=== PATIENT | male | born 1935 | race Caucasian/White ===

== ENCOUNTER 2016-12-01 10:00 | Day surgery (SDC) | payer OTHER ==
[2016-12-01] VITALS (7 sets, daily range): BP systolic 158–163; BP diastolic 74–99; PULSE 80–101; RESP 16–18; TEMP 97.4–98.1; O2SAT 94–96
[~2016-12-01] VITALS: Ht 170.2 cm; Wt 87.8 kg
[~2016-12-01 10:00] MED LIST: ACET325 PO; CLOP75 PO; CORE6.25 PO; ECOT81TA2; LIVA2TAB PO; NITR0.4S SL; PRIL20CA PO
[2016-12-01] MEDS ORDERED: TIMO0.5S30 EACH EYE (10:48)
[2016-12-01] MEDS ORDERED: CETI10 PO (10:49)
[2016-12-01] MEDS ORDERED: PREV15CA PO (10:49)
[2016-12-01] MEDS ORDERED: CARV6.25 PO (10:49)
[2016-12-01] MEDS ORDERED: ASPI1TAB69 PO (10:49)
[2016-12-01 11:00] LABS: AUTOMATED NEUTROPHIL # 3.9 TH/MM3 (1.8-7.7); BASOPHIL # 0.1 TH/MM3 (0-0.2); BASOPHIL % 0.9 % (0.0-2.0); EOSINOPHIL # 0.2 TH/MM3 (0-0.4); EOSINOPHIL % 2.8 % (0.0-4.0); HEMATOCRIT 48.4 % (39.0-51.0); HEMO FLAGS DIFF FINAL; LYMPH % 38.2 % (9.0-44.0); LYMPHOCYTE # 2.9 TH/MM3 (1.0-4.8); MEAN CELL VOLUME 93.2 FL (80.0-100.0); MEAN CORPUSCULAR HEMOGLOBIN 31.5 PG (27.0-34.0); MEAN CORPUSCULAR HGB CONC 33.9 % (32.0-36.0); MONO % 6.4 % (0.0-8.0); NEUT % 51.7 % (16.0-70.0); PLATELET COUNT 260 TH/MM3 (150-450); RED BLOOD COUNT 5.19 MIL/MM3 (4.50-5.90); RED CELL DISTRIBUTION WIDTH 13.3 % (11.6-17.2); WHITE BLOOD COUNT 7.6 TH/MM3 (4.0-11.0)
[2016-12-01] MEDS ORDERED: NS 1000P @30 MLS/HR (KVO) IV SCH (11:00)
[2016-12-01 11:05] LABS: APTT (PATIENT) 29.8 SEC (24.3-30.1); PROTHROMBIN TIME - PATIENT 11.4 SEC (9.8-11.6)
[2016-12-01 11:11] LABS: POTASSIUM 3.8 MEQ/L (3.5-5.1)
[2016-12-01] MEDS ORDERED: methylPREDNISolone SOD SUCC 125 MG/2 ML VIAL ONE (12:01)
[2016-12-01] MEDS ORDERED: methylPREDNISolone SOD SUCC 125 MG/2 ML VIAL IV ONE (12:30)
[2016-12-01] MEDS ORDERED: FAMOTIDINE 20 MG/2 ML VIAL IV ONE (12:30)
[2016-12-01] MEDS ORDERED: diphenhydrAMINE HCL 50 MG/ML VIAL IV SCH (12:30)
[2016-12-01] MEDS ORDERED: IOHEXOL 350 MG/ML 100 ML BTL (for Cath Lab) OTHER ONE (15:41)
[2016-12-01] MEDS ORDERED: HEPARIN-NS/PF INJ 500 ML ONE (15:57)
[2016-12-01] MEDS ORDERED: diphenhydrAMINE HCL 50 MG/ML VIAL ONE (15:57)
[2016-12-01] MEDS ORDERED: MIDAZOLAM HCL 2 MG/2 ML VIAL ONE ×2 (15:58→16:25)
[2016-12-01] MEDS ORDERED: HEPARIN SODIUM - IV 10,000 UNITS/10 ML VIAL ONE (16:52)
[2016-12-01] MEDS ORDERED: NITROGLYCERIN INJ 5 ML ONE (16:52)
--- NOTE | 2016-12-01 17:08 | EKG ---
Date Performed: 12/01/2016 Time Performed: 11:20:16 PTAGE: 81 years EKG: Sinus rhythm Left axis deviation Compared to prior tracing no significant change Borderline ECG PREVIOUS TRACING : 09/02/2013 04.03 DOCTOR: Edwar Carter Interpretating Date/Time 12/01/2016 16:59:34
[2016-12-01] MEDS ORDERED: TICAGRELOR 90 MG TAB PO ONE (17:17)
[2016-12-01] MEDS ORDERED: BACITRACIN OINT 0.9 GM PKT TOP ONE (17:30)
[2016-12-01] MEDS ORDERED: SODIUM CHLOR 0.9% 250 ML INJ 250 ML IV PRN (18:00)
[2016-12-01] MEDS ORDERED: TEMAZEPAM 15 MG CAP PO PRN (18:00)
[2016-12-01] MEDS ORDERED: MISC INFORMATION XX ONE (18:00)
[2016-12-01] MEDS ORDERED: LIDOCAINE HCL 1% 50 ML VIAL INFIL PRN (18:00)
[2016-12-01] MEDS ORDERED: ATROPINE SULFATE 1 MG/ML VIAL IV PRN (18:00)
[2016-12-01] MEDS ORDERED: SODIUM CHLOR 0.9% 1000 ML INJ 1,000 ML IV SCH (18:00)
[2016-12-01] MEDS ORDERED: LORazepam 2 MG/ML VIAL IV PRN (18:00)
[2016-12-01] MEDS ORDERED: ACETAMINOPHEN 325 MG TAB PO PRN (18:00)
--- NOTE | 2016-12-01 18:00 | HHI.PR ---
Immediate Post Op Note Procedure Date: Dec 01, 2016 Pre Op Diagnosis: cad Post Op Diagnosis: cad Surgeon: Jaron Méndez MD, [facility] Risk Assessment Consultant(s): none Procedure: Cath, PCI LAD Findings: severe LAD stenosis Complications: none Specimen(s) removed: none Estimated blood loss: below 10 cc Patient to: Other Patient Condition: Good Jaron Méndez MD Dec 01, 2016 18:00
[2016-12-01] MEDS ORDERED: EZETIMIBE 10 MG TAB PO SCH (18:15)
[2016-12-01] MEDS: ASPIRIN EC 81 MG TABEC PO SCH (18:45)
[2016-12-01] MEDS: TIMOLOL MALEATE 0.5% OPHT SOLN 5 ML BTL EACH EYE SCH (21:00)
[2016-12-01] MEDS: CARVEDILOL 6.25 MG TAB PO SCH (21:48)
[2016-12-02] VITALS (8 sets, daily range): BP systolic 127–136; BP diastolic 70–95; PULSE 78–104; RESP 18–20; TEMP 97.1–98.5; O2SAT 94–95
[2016-12-02 05:31] LABS: AUTOMATED NEUTROPHIL # 13.7 TH/MM3 (1.8-7.7); BASOPHIL % 0.3 % (0.0-2.0); HEMATOCRIT 45.4 % (39.0-51.0); HEMO FLAGS DIFF FINAL; LYMPH % 13.2 % (9.0-44.0); LYMPHOCYTE # 2.1 TH/MM3 (1.0-4.8); MEAN CELL VOLUME 92.3 FL (80.0-100.0); MEAN CORPUSCULAR HEMOGLOBIN 31.4 PG (27.0-34.0); MONO % 1.3 % (0.0-8.0); NEUT % 85.2 % (16.0-70.0); PLATELET COUNT 226 TH/MM3 (150-450); RED BLOOD COUNT 4.92 MIL/MM3 (4.50-5.90); WHITE BLOOD COUNT 16.1 TH/MM3 (4.0-11.0)
[2016-12-02 05:50] LABS: BICARBONATE 25.3 MEQ/L (21.0-32.0); POTASSIUM 4.2 MEQ/L (3.5-5.1)
[2016-12-02 05:54] LABS: HDL CHOLESTEROL 39.9 MG/DL (40.0-60.0)
[2016-12-02] MEDS ORDERED: TICAGRELOR 90 MG TAB PO SCH (09:00)
[2016-12-02] MEDS ORDERED: PANTOPRAZOLE SOD 40 MG DELAYED RELEASE TAB PO SCH (09:00)
[2016-12-02] MEDS ORDERED: CETIRIZINE HCL 10 MG TAB PO SCH (09:00)
[2016-12-02] MEDS ORDERED: ASPIRIN 81 MG CHEW TAB PO SCH (09:00)
[2016-12-02] MEDS: TIMOLOL MALEATE 0.5% OPHT SOLN 5 ML BTL EACH EYE SCH (09:00)
[2016-12-02] MEDS: ASPIRIN EC 81 MG TABEC PO SCH (09:35)
[2016-12-02] MEDS: CARVEDILOL 6.25 MG TAB PO SCH (09:36)
--- NOTE | 2016-12-02 09:51 | PD.CARD.PN ---
Subjective Subjective Remarks Doing well. Denies CP or SOB. Objective Medications Current Medications Medications (Trade) Dose Ordered Sig/Nik Route PRN Reason Start Time Stop Time Status Last Admin Dose Admin Sodium Chloride (NS 1000 ml Inj) 1,000 ml @ 30 mls/hr Q24H IV 12/01/16 11:00 Acetaminophen (Tylenol) 325 mg Q4H PRN PO PAIN SCALE 1 TO 5 12/01/16 18:00 Temazepam (Restoril) 15 mg HS PRN PO SLEEP 12/01/16 18:00 12/01/16 22:35 Ticagrelor (Brilinta) 90 mg BID PO 12/02/16 09:00 12/02/16 09:35 Lorazepam (Ativan Inj) 0.5 mg UNSCH PRN IV ANXIETY 12/01/16 18:00 12/02/16 17:59 Atropine Sulfate (Atropine Inj) 0.5 mg UNSCH PRN IV VAGAL REPONSE 12/01/16 18:00 Lidocaine HCl (Xylocaine 1% Inj (50 ml)) 10 ml UNSCH PRN INFIL SHEATH REMOVAL 12/01/16 18:00 12/02/16 17:59 Aspirin (Ecotrin Ec) 81 mg DAILY PO 12/01/16 18:00 12/02/16 09:35 Carvedilol (Coreg) 6.25 mg BID PO 12/01/16 21:00 12/02/16 09:36 Cetirizine HCl (ZyrTEC) 10 mg DAILY PO 12/02/16 09:00 12/02/16 09:35 Timolol Maleate (Timoptic 0.5% Opt Soln) 1 drop BID EACH EYE 12/01/16 21:00 12/01/16 21:00 Pantoprazole Sodium (Protonix) 40 mg DAILY PO 12/02/16 09:00 12/02/16 09:35 EZETIMIBE (Zetia) 10 mg DAILY PO 12/01/16 18:15 Vital Signs / I&O Vital Signs Date Time Temp Pulse Resp B/P Pulse Ox O2 Delivery O2 Flow Rate FiO2 12/02/16 06:00 78 12/02/16 05:00 88 12/02/16 04:00 97.1 83 18 130/70 95 12/02/16 04:00 92 12/02/16 03:00 97 12/02/16 02:00 89 2/18/17 01:00 92 12/02/16 00:00 96 12/02/16 00:00 97.6 94 18 127/74 95 12/01/16 23:00 97 12/01/16 22:00 101 12/01/16 21:00 95 12/01/16 20:00 97.5 86 18 160/74 94 12/01/16 20:00 101 12/01/16 19:00 85 12/01/16 18:00 97.4 89 18 158/77 95 12/01/16 10:45 98.1 80 16 163/99 96 I/O 12/01/16 12/01/16 12/01/16 12/02/16 12/02/16 12/02/16 07:00 15:00 23:00 07:00 15:00 23:00 Intake Total 820 ml Output Total 850 ml Balance -30 ml Intake Oral 420 ml IV Total 400 ml Output Urine Total 850 ml # Bowel Movements 0 Physical Exam VSS, afeb Lungs: CTA Heart: RRR Ext: Right groin site stable. No C/C/E Neuro: intact Laboratory Laboratory Tests Test 12/01/16 12/02/16 10:35 05:07 White Blood Count 7.6 TH/MM3 16.1 TH/MM3 Red Blood Count 5.19 MIL/MM3 4.92 MIL/MM3 Hemoglobin 16.4 GM/DL 15.4 GM/DL Hematocrit 48.4 % 45.4 % Mean Corpuscular Volume 93.2 FL 92.3 FL Mean Corpuscular Hemoglobin 31.5 PG 31.4 PG Mean Corpuscular Hemoglobin 33.9 % 34.0 % Concent Red Cell Distribution Width 13.3 % 13.0 % Platelet Count 260 TH/MM3 226 TH/MM3 Mean Platelet Volume 8.4 FL 8.5 FL Neutrophils (%) (Auto) 51.7 % 85.2 % Lymphocytes (%) (Auto) 38.2 % 13.2 % Monocytes (%) (Auto) 6.4 % 1.3 % Eosinophils (%) (Auto) 2.8 % 0.0 % Basophils (%) (Auto) 0.9 % 0.3 % Neutrophils # (Auto) 3.9 TH/MM3 13.7 TH/MM3 Lymphocytes # (Auto) 2.9 TH/MM3 2.1 TH/MM3 Monocytes # (Auto) 0.5 TH/MM3 0.2 TH/MM3 Eosinophils # (Auto) 0.2 TH/MM3 0.0 TH/MM3 Basophils # (Auto) 0.1 TH/MM3 0.0 TH/MM3 CBC Comment DIFF FINAL DIFF FINAL Differential Comment Prothrombin Time 11.4 SEC Prothromb Time International 1.0 RATIO Ratio Activated Partial 29.8 SEC Thromboplast Time Sodium Level 139 MEQ/L 139 MEQ/L Potassium Level 3.8 MEQ/L 4.2 MEQ/L Chloride Level 102 MEQ/L 106 MEQ/L Carbon Dioxide Level 28.0 MEQ/L 25.3 MEQ/L Anion Gap 9 MEQ/L 8 MEQ/L Blood Urea Nitrogen 10 MG/DL 14 MG/DL Creatinine 1.14 MG/DL 1.01 MG/DL Estimat Glomerular Filtration 62 ML/MIN 71 ML/MIN Rate Random Glucose 114 MG/DL 144 MG/DL Calcium Level 8.7 MG/DL 8.4 MG/DL Total Creatine Kinase 57 U/L Triglycerides Level 63 MG/DL Cholesterol Level 144 MG/DL LDL Cholesterol 92 MG/DL HDL Cholesterol 39.9 MG/DL Cholesterol/HDL Ratio 3.60 RATIO Assessment and Plan Problem List: (1) Coronary artery disease (2) HTN (hypertension) (3) S/P coronary artery stent placement Assessment and Plan CV stable. Discharge home today on current meds. Code Status Full Discussed Condition With Instructions given to patient. Answered questions. F/U with Dr. Méndez in 2-3 weeks. Dontae Randolph MD Dec 02, 2016 09:51
--- NOTE | 2016-12-02 16:40 | EKG ---
Date Performed: 12/01/2016 Time Performed: 20:32:28 PTAGE: 81 years EKG: Sinus rhythm Left axis deviation Poor R wave progression, which may be due to the left axis deviation Compared to prior tracing no significant change Abnormal ECG NO PREVIOUS TRACING DOCTOR: Wilfredo Guillermo Interpretating Date/Time 12/02/2016 16:39:01
--- NOTE | 2016-12-02 16:40 | EKG ---
Date Performed: 12/02/2016 Time Performed: 07:13:42 PTAGE: 81 years EKG: Sinus rhythm Possible left anterior fascicular block Compared to prior tracing no significant change. Poor initia l anterior forces are again noted Borderline ECG PREVIOUS TRACING : 12/01/2016 20.32 DOCTOR: Wilfredo Guillermo Interpretating Date/Time 12/02/2016 16:39:34
--- NOTE | 2016-12-04 08:51 | MR ---
cc: KIKI WHEELER DATE: 12/01/16 PROCEDURE 1. Retrograde left and right heart catheterization with left ventriculography, selective coronary angiography, saphenous vein graft angiography and left internal mammary artery angiography. 2. Angioplasty and stenting of the left anterior descending artery. 3. Moderate sedation. INDICATION Unstable angina, class III angina, intermediate probability nuclear myocardial perfusion study, history of coronary artery bypass and LAD stenting. EXIT SITE Right femoral artery. EQUIPMENT 6.5" pigtail catheter, 5" JL4, JL5 and AR modified coronary catheters. XB4 guide, marker wire, 2.0 balloon for pre-dilation. 3.0 x 26 mm resolute stent at 13 atmospheres, postdilated with 3.5 x 12 mm noncompliant balloon at 20 atmospheres. 2.5 x 12 mm resolute balloon at 16 atmospheres MEDICATIONS IV Fentanyl IV heparin IV nitroglycerine IC Brilinta 180 mg by mouth CONTRAST Omnipaque 250 mL. COMPLICATIONS None. BLOOD LOSS Less than 10 cc METHOD OF HEMOSTASIS Angioseal closure RESULTS HEMODYNAMICS Heart rate 80 beats per minute, end diastolic pressure 17 mmHg. Left ventricle 126/17, aorta 140/74/103, Left ventricular ejection fraction 55%. Small area of distal inferior apical hypokinesis, no mitral regurgitation. CORONARY ANGIOGRAPHY Left main coronary is patent. Left anterior descending artery has 20% stenosis in the proximal portion and 90% stenosis in the mid portion proximally to the stent. There is 80% stenosis in the mid-distal left anterior descending artery. D1 small with 50% ostial stenosis, D2 patent. Left circumflex artery is patent. OM1 patent. OM2 patent. Right coronary artery is a dominant vessel which totally occluded in the mid portion. Saphenous vein graft to the distal right coronary artery has 30% proximal stenosis. Left internal mammary artery is atretic. Stenosis in the mid left anterior descending artery was 90%, lesion length 22 mm. Pre SILVIA flow 3, post SILVIA flow 3, post stenosis 0. Stenosis in the mid-distal left anterior descending was 80%, lesion length 8 mm, pre SILVIA flow 3, post SILVIA flow 3, Post stenosis 0 Post intervention angioplasty with excellent patency of the stented segments and no evidence of dissection, thrombosis or embolization. DIAGNOSIS 1. Coronary artery disease with severe stenosis of the left anterior descending artery and patent vein graft to the totally occluded right coronary artery. 2. Successful angioplasty and stenting of the left anterior descending artery. 3. Overall preserved left ventricular systolic function. DISPOSITION Mr. Fernandez will be monitored on telemetry after this procedure. We will continue therapy with Brilinta and baby aspirin for at least one year and aspirin indefinitely. We will also continue aggressive modification of his cardiac risk factors. He will be monitored overnight and discharged home tomorrow if stable. I will see him back for followup in our office after discharge. The patient was given a prescription for Brilinta 90 mg twice a day, 60 tablets with 11 refills. MD ISHA Courtney/ /5:54 PM /2:41 PM MTDD
== END 2016-12-02 13:33 | disposition home or self-care (01) ==
LOC: HDOC 10:00 → HDIC 10:01 → HCPC 17:52 → HDOC 12-02 13:33
PROVIDERS: ATTEND Internal Medicine Interventional Cardiology
DX: I25.10 Atherosclerotic heart disease of native coronary artery without angina pectoris (principal); R94.39 Abnormal result of other cardiovascular function study; I25.5 Ischemic cardiomyopathy; I10 Essential (primary) hypertension; I25.2 Old myocardial infarction; E78.5 Hyperlipidemia, unspecified; K21.9 Gastro-esophageal reflux disease without esophagitis; Z95.1 Presence of aortocoronary bypass graft
CPT/HCPCS: 80048; 80061; 82550; 85002; 85025; 85610; 85730; 92928; 93005; 93458; C1725; C1760; C1769; C1874; C1887; C1893; G0269; J1200; J1644; J2250; J2930; J3010; J7030; Q9967